=== PATIENT | female | born 1965 | race Caucasian/White ===

== ENCOUNTER 2020-04-21 23:48 | Emergency (ER) | payer OTHER, MEDICAID ==
[~2020-04-21] VITALS: Ht 154.9 cm; Wt 86.2 kg
[2020-04-21 23:50] VITALS: BP 140/56; Ht 154.9 cm; Wt 86.2 kg
[2020-04-22 02:05] LABS: BASOPHIL % 1.5 % (0-2); PLATELET COUNT 381 x10^3mcL (130-400)
[2020-04-22 02:06] LABS: RED CELL DISTRIBUTION WIDTH 17.7 % (11.5-14.5)
[2020-04-22 02:07] LABS: UA SPECIFIC GRAVITY <=1.005 (1.005-1.035); microscopic required? YES; urine erythrocyte 3+ (NEGATIVE)
[2020-04-22 02:11] LABS: CHLORIDE SERUM 97 mmol/L (98-107); CREATININE SERUM 0.7 mg/dL (0.6-1.0); GFR1 > 60 mL/min; GLUCOSE SERUM 151 mg/dL (74-106); POTASSIUM SERUM 3.3 mmol/L (3.5-5.1); SODIUM SERUM 130 mmol/L (136-145)
[2020-04-22 02:17] LABS: ALBUMIN 3.5 g/dL (3.4-5.0); ALKALINE PHOSPHATASE 131 U/L (46-116); ALT/SGPT 22 U/L (14-59); AST/SGOT 24 U/L (15-37); BILIRUBIN TOTAL 0.33 mg/dL (0.20-1.00); TOTAL PROTEIN, SERUM 6.9 g/dL (6.4-8.2)
== END 2020-04-22 12:35 | disposition home or self-care (01) ==
LOC: ED 23:48
PROVIDERS: Emergency Medicine
DX: T83.198A Other mechanical complication of other urinary devices and implants, initial encounter (principal); E87.1 Hypo-osmolality and hyponatremia; E11.9 Type 2 diabetes mellitus without complications; Z88.2 Allergy status to sulfonamides
CPT/HCPCS: 82962